=== PATIENT | male | born 1970 | race Caucasian/White ===

== ENCOUNTER 2024-04-02 09:05 | Observation (INO) ==
[2024-04-02] MEDS ORDERED: Ondansetron 4 mg VIAL 2 MG/ML 2 ml VIAL ONE (12:36)
[2024-04-02] MEDS: Lactated Ringers 1000 ml BAG 1,000 ML IV ONE ×2 (12:38→14:56)
[2024-04-02] MEDS: Ondansetron 4 mg VIAL 2 MG/ML 2 ml VIAL IV ONE (12:38)
[2024-04-02 12:49] LABS: ABS Basophils 0.1 10^3/uL (0.0-0.1); ABS Lymphocytes 1.1 10^3/uL (1.0-4.8); ABS Monocytes 1.2 10^3/uL (0.0-1.1); ABS Neutrophils 18.4 10^3/uL (1.5-7.6); ABS Nucleated RBC 0.01 10^3/ul; Eosinophil % 0.1 %; Hematocrit 46.3 % (38-53); Hemoglobin 15.9 g/dL (13.2-16.3); Lymphocyte % 5.1 %; Mean Corpuscular Hemoglobin 29.9 pg (27-33); Mean Corpuscular Hgb Conc 34.3 g/dL (31-36); Mean Platelet Volume 8.1 fL (7.5-11.2); Platelet Count 320 10^3/uL (150-450); Red Blood Count 5.33 10^6/uL (4.06-5.63); Red Cell Distribution Width 13.6 % (12-17); White Blood Count 20.7 10^3/uL (3.6-10.2)
[2024-04-02 13:27] LABS: Urine Appearance Turbid; Urine Bilirubin Negative (Negative); Urine Blood 1+ (Negative); Urine Color Yellow; Urine Glucose 1+ (>=70 mg/dL) (Negative); Urine Ketones Trace (Negative); Urine Nitrite Negative (Negative); Urine Protein 1+ (>=30 mg/dL) (Negative); Urine Specific Gravity 1.034 (1.002-1.030); Urine Urobilinogen Negative (Negative); Urine pH 5.5 (5.0-8.0)
[2024-04-02 13:41] LABS: Albumin 4.4 g/dL (3.2-5.2); Albumin/Globulin Ratio 1.6 (1-3); C Reactive Protein 10.13 mg/L (<8.01); Calcium 9.7 mg/dL (8.6-10.3); Creatinine, Serum 0.7 mg/dL (0.67-1.17); Globulin 2.7 g/dL (2-4); Magnesium 1.9 mg/dL (1.9-2.7); Potassium 4.2 mmol/L (3.5-5.0); Total Protein 7.1 g/dL (6.4-8.9); eGFR CKD-EPI 109.5 (>60)
[2024-04-02 13:57] LABS: Urine Bacteria Absent /HPF (Absent); Urine Red Blood Cell 1+(3-5/hpf) /HPF (0-Trace); Urine Squamous Epithelial Cell Present /HPF (Absent); Urine White Blood Cell Trace(0-5/hpf) /HPF (0-Trace)
[2024-04-02] MEDS: Pantoprazole VIAL 40 MG VIAL IV ONE (14:07)
[2024-04-02] MEDS: Iohexol 300 (CONTRAST) 10 ML SDV IV ONE (15:21)
[2024-04-02] MEDS: Cefepime 2 GM in Dextrose 2 GM/50 ML BAG IV ONE (17:00)
[2024-04-02] MEDS: metroNIDAZOLE IV 500 MG/100ML 500 MG/100 ML BAG IVPB ONE (17:53)
[2024-04-02] MEDS: Lactated Ringers 1000 ml BAG 1,000 ML IV SCH (21:06)
[2024-04-02] MEDS: Enoxaparin 40 MG/0.4 ML SYR SUBCUT SCH (21:10)
[2024-04-02] MEDS: Metoprolol Tartrate 5 mg VIAL 5 ml VIAL (1 mg/ml) IV ONE (23:25)
[2024-04-03] MEDS: fentaNYL 100 mcg/2 ml 50 MCG/ML VIAL IV SLOW PU ONE (01:26)
[2024-04-03] MEDS ORDERED: metroNIDAZOLE IV 250 MG/50ML 50 ML IVPB SCH (04:00)
[2024-04-03] MEDS ORDERED: Cefepime 2 GM in Dextrose 2 GM/50 ML BAG IV SCH (04:00)
[2024-04-03] MEDS: Pantoprazole VIAL 40 MG VIAL IV SCH (08:02)
[2024-04-03] MEDS: Lactated Ringers 1000 ml BAG 1,000 ML IV SCH (11:41)
[2024-04-03] MEDS ORDERED: Zosyn per Pharmacy NOTE FOLLOW UP SCH ×2 (12:00)
[2024-04-03] MEDS: Piperacillin/Tazobac 3.375 BAG 3.375 GM/100 ML BAG IV ONE (13:29)
[2024-04-03] MEDS ORDERED: Cefepime ADVAN 1 GM in NS 0.9% 50 ML 50 ML IVPB SCH (14:00)
[2024-04-03] MEDS: Cefepime 1 GM in Dextrose 1 GM/50 ML BAG IV SCH (14:18)
[2024-04-04 06:46] LABS: ABS Basophils 0.1 10^3/uL (0.0-0.1); ABS Eosinophils 0.3 10^3/uL (0.0-0.5); ABS Lymphocytes 1.7 10^3/uL (1.0-4.8); ABS Monocytes 0.9 10^3/uL (0.0-1.1); Eosinophil % 2.2 %; Hematocrit 40.5 % (38-53); Hemoglobin 13.9 g/dL (13.2-16.3); Lymphocyte % 14.6 %; Mean Corpuscular Hemoglobin 29.9 pg (27-33); Mean Corpuscular Hgb Conc 34.3 g/dL (31-36); Mean Corpuscular Volume 87.3 fL (80-97); Mean Platelet Volume 7.7 fL (7.5-11.2); Platelet Count 256 10^3/uL (150-450); Red Blood Count 4.64 10^6/uL (4.06-5.63); Red Cell Distribution Width 13.6 % (12-17)
[2024-04-04 07:26] LABS: Calcium 8.3 mg/dL (8.6-10.3); Creatinine, Serum 0.69 mg/dL (0.67-1.17); Magnesium 1.8 mg/dL (1.9-2.7)
[2024-04-04 09:34] VITALS: BP 171/93
== END 2024-04-04 12:25 | disposition home or self-care (01) ==
LOC: ED 09:05 → EDHOLD 09:05 → MED 20:03
PROVIDERS: ADMIT Internal Medicine; ATTEND Internal Medicine